=== PATIENT | male | born 1975 | race Caucasian/White ===

== ENCOUNTER 2016-12-31 17:16 | Emergency (ER) | payer OTHER ==
[2016-12-31] MEDS ORDERED: LET GEL TOPICAL 1 EA SYR TP ONE ×2 (17:24→18:21)
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
[2016-12-31 17:28] VITALS: TEMP 97.7
[2016-12-31] MEDS ORDERED: HYDROCOD/APAP 5/325 PREPACK#6 BTL TAKEHOME ONE (19:13)
[2016-12-31] MEDS ORDERED: IBUPROFEN 600 MG TAB PO ONE ×2 (19:58→20:20)
[2016-12-31 20:18] VITALS: BP 142/77; PULSE 93; RESP 18; O2SAT 97
== END 2016-12-31 20:23 | disposition home or self-care (01) ==
DX: S22.050A Wedge compression fracture of T5-T6 vertebra, initial encounter for closed fracture (principal); S29.012A Strain of muscle and tendon of back wall of thorax, initial encounter; S16.1XXA Strain of muscle, fascia and tendon at neck level, initial encounter; S09.90XA Unspecified injury of head, initial encounter; V19.40XA Pedal cycle driver injured in collision with unspecified motor vehicles in traffic accident, initial encounter; Y92.410 Unspecified street and highway as the place of occurrence of the external cause; Y99.8 Other external cause status; Y93.89 Activity, other specified